=== PATIENT | male | born 1965 | race Caucasian/White ===

== ENCOUNTER 2021-11-19 13:37 | Outpatient (CLI) | payer BC | END 2021-11-19 13:38 | disposition home or self-care (01) | LOC: BICRAD 13:37 | PROVIDERS: ATTEND Internal Medicine Rheumatology | DX: M13.0 Polyarthritis, unspecified (principal); L40.9 Psoriasis, unspecified; M89.9 Disorder of bone, unspecified | CPT/HCPCS: 72202 ==